=== PATIENT | male | born 1995 | race Two or more races ===

== ENCOUNTER 2018-03-22 11:26 | Emergency (ER) | payer OTHER ==
[~2018-03-22] VITALS: Ht 180.3 cm; Wt 75.3 kg
[2018-03-22 11:39] VITALS: BP 114/63; Ht 180.3 cm; Wt 75.3 kg
== END 2018-03-22 14:55 | disposition home or self-care (01) ==
LOC: ED 11:26
DX: M79.672 Pain in left foot (principal); M79.671 Pain in right foot; L30.9 Dermatitis, unspecified